=== PATIENT | female | born 1990 | race Caucasian/White ===

== ENCOUNTER 2016-08-17 23:03 | Emergency (ER) | payer OTHER ==
[2016-08-17 23:32] VITALS: BP 121/79
== END 2016-08-17 23:32 | disposition home or self-care (01) ==
LOC: ED 23:03
DX: L73.2 Hidradenitis suppurativa (principal)

== ENCOUNTER 2017-04-29 12:13 | Emergency (ER) | payer OTHER ==
[~2017-04-29] VITALS: Ht 162.6 cm; Wt 67.6 kg
[2017-04-29 12:26] VITALS: Ht 162.6 cm; Wt 67.6 kg
[2017-04-29 17:27] LABS: CALCIUM 9.1 mg/dL (8.5-10.1); CARBON DIOXIDE 24.3 mmol/L (21-32); CHLORIDE SERUM 105 mmol/L (98-107); CREATININE SERUM 0.6 mg/dL (0.6-1.0); GFR1 > 60 mL/min; GLUCOSE SERUM 97 mg/dL (74-106); POTASSIUM SERUM 3.6 mmol/L (3.5-5.1); SODIUM SERUM 140 mmol/L (136-145)
[2017-04-29 17:28] LABS: BASOPHIL % 0.4 % (0-2); PLATELET COUNT 208 x10^3mcL (130-400); RED CELL DISTRIBUTION WIDTH 12.9 % (11.5-14.5)
[2017-04-29 20:07] VITALS: BP 115/68
== END 2017-04-29 20:07 | disposition home or self-care (01) ==
LOC: ED 12:13
PROVIDERS: Emergency Medicine
DX: H92.01 Otalgia, right ear (principal)
CPT/HCPCS: 36415; Q9967